=== PATIENT | female | born 1970 | race Caucasian/White ===

== ENCOUNTER 2021-07-28 16:52 | Emergency (ER) | payer OTHER, SELFPAY ==
--- NOTE | ~2021-07-28 | XR_ITS ---
EXAMINATION: [id number] DATE: 07/28/2021 17:59 INDICATION: Left chest pain. TECHNIQUE: Frontal and lateral views of the chest and 2 views on 3 radiographs of the left ribs were obtained. COMPARISON: None. FINDINGS: CHEST TWO VIEWS: There are airspace opacities in the mid and lower lung zones with a perihilar predom inance. No pleural effusion or pneumothorax. The heart size is normal. There are changes of anterior fusion procedure in cervical spine. Surgical clips in the right upper quadrant are likely from cholec ystectomy. LEFT RIBS: There is a fracture of left eighth rib. IMPRESSION: 1. Acute fracture of left eighth rib. 2. Airspace opacities in the mid and lower lung zones with a perihilar predominance, consistent with pneumonia versus mild pulmonary edema. Reviewed, dictated and finalized at location A. ER CONTROL OPERATOR IMPRESSION: 1. Acute fracture of left eighth rib. 2. Airspace opacities in the mid and lower lung zones with a perihilar predomin ance, consistent with pneumonia versus mild pulmonary edema.
[2021-07-28 17:06] VITALS: BP 156/105; PULSE 113; RESP 20; TEMP 38.2; O2SAT 97
--- NOTE | 2021-07-28 17:22 | ED.FEMALEGU ---
HPI - Female Genitourinary General Chief complaint: Urogenital-Female Stated complaint: Shortness of Breath/ UTI Time Seen by Provider: 07/28/21 17:22 Source: patient, RN notes reviewed and old records reviewed Mode of arrival: ambulatory Limitations: no limitations History of Present Illness HPI Narrative: 51 year old female with complaints of 2 day history of pain with urination with hesitancy, foul odor of urine and also some lower suprapubic discomfort. Patient states that she has history of urinary tract infection and pyelonephritis in the past.Patient also states that she has some left rib area pain for the past one week duration she felt a pop in her left rib area and also over flank region.Patint states some increase pain with deep breathing and stats that she has felt some shortness of breath with activity and has noted a cough. Sao2 97% on room air and patient is febrile in triage. MD elicited complaint: dysuria and other (hesitancy, left flank and left rib pain) Pertinent past history: pyelonephritis Female Urogenital Radiation: L Flank Related Data Home Medications Medication Instructions Recorded Confirmed celecoxib [Celebrex] 200 mg PO BID 07/28/21 07/28/21 duloxetine [Cymbalta] 60 mg PO BID 07/28/21 07/28/21 ibuprofen [Motrin] 800 mg PO Q6H PRN 07/28/21 07/28/21 morphine 15 mg PO Q12H 07/28/21 07/28/21 morphine 15 mg PO Q4H PRN 07/28/21 07/28/21 pregabalin [Lyrica] 300 mg PO TID 07/28/21 07/28/21 sertraline [Zoloft] 100 mg PO DAILY 07/28/21 07/28/21 Allergies Allergy/AdvReac Type Severity Reaction Status Date / Time Sulfa (Sulfonamide Allergy LEESA Verified 07/28/21 17:22 Antibiotics) MYA SYNDROMN Review of Systems Review of Systems: CONSTITUTIONAL: Positive for fever, chills, or sweats. EYES: Denies visual changes, redness, or discharge. ENT: Denies rhinorrhea, congestion, sore throat, or otalgia. CARDIOVASCULAR: Denies chest pain, palpitations, or edema, positive for left rib pain RESPIRATORY: Positive for cough or dyspnea with exertion and deep breathing.. GASTROINTESTINAL: Denies abdominal pain, nausea, vomiting, or diarrhea. GENITOURINARY: Positive dysuria no hematuria. SKIN: Denies rash or itching. MUSCULOSKELETAL: Chronic back pain, joint pain, or myalgia, pain to left rib area and left flank region NEUROLOGIC: Denies headache, numbness, or weakness. PSYCHIATRIC: Positive for history of anxiety or depression. All systems reviewed & are unremarkable except as noted in HPI and below PMFSH Past Medical History Medical History (Updated 07/31/21 @ 16:24 by Savannah Garces NP) Kidney stones Osteoarthritis Pyelonephritis Sciatica UTI (urinary tract infection) Surgical History Surgical History (Updated 07/28/21 @ 18:07 by Savannah Garces NP) H/O: hysterectomy History of bilateral breast reduction surgery History of eye surgery right History of fusion of cervical spine History of tonsillectomy and adenoidectomy Hx of cholecystectomy Family History Family History (Updated 07/31/21 @ 16:01 by Savannah Garces NP) Other No significant family history Social History Social History (Updated 07/31/21 @ 16:25 by Savannah Garces NP) Smoking status: Current every day smoker Tobacco type: cigarettes Alcohol intake: unknown Substance use: current Substance use type: opiates Last use: chronic back pain Living arrangements: with family Gender identity (if verbalized by the patient): Female Comments At time of signature, agree with nursing past medical, surgical, social and family history. There is no relevant family history pertinent to the presenting complaint Exam Narrative: GENERAL: Ill-appearing, well-nourished, and in no acute distress. HEAD: Normocephalic, atraumatic. EYES: PERRLA and EOMI. ENT: Nares clear, no rhinorrhea or epistaxis. Mucous membranes moist.TM's normal with good light reflex, throat pink with no lesions or exudates, tonsils abse
== END 2021-07-28 18:34 | disposition home or self-care (01) ==
PROVIDERS: Emergency Provider Registered Nurse
DX: N39.0 Urinary tract infection, site not specified (principal); J18.9 Pneumonia, unspecified organism; S22.32XA Fracture of one rib, left side, initial encounter for closed fracture; F17.200 Nicotine dependence, unspecified, uncomplicated; X58.XXXA Exposure to other specified factors, initial encounter
CPT/HCPCS: 71101; 81003; 87077; 87086; 87088; 87186; 99213; G0463